=== PATIENT | female | born 1950 ===

== ENCOUNTER 2017-09-28 14:20 | Emergency (ER) | payer MEDICARE ==
[2017-09-28 14:35] VITALS: TEMP 99.3; O2SAT 99
--- NOTE | 2017-09-28 15:14 | C.PDOC ---
History Of Present Illness 67 year old female presents to the emergency room complaining of a headache, onset a few days ago. Patient fell in May, and hit her head. CT at that time was negative. Today she attempted to see her PMD and was unable to get an appointment, so she came here. Patient is concerned about having developed a brain bleed. There has been no new injury or trauma. Denies any visual changes, dizziness, or vomiting. PMD: Dr. Rochelle Belcher Time Seen by Provider: 09/28/17 14:52 Chief Complaint (Nursing): Headache History Per: Patient History/Exam Limitations: no limitations Onset/Duration Of Symptoms: Days (x3) Current Symptoms Are (Timing): Still Present Severity: Mild Quality: Dull Recent travel outside of the [place]: No Past Medical History Reviewed: Historical Data, Nursing Documentation, Vital Signs Vital Signs: Last Vital Signs Temp 99.3 F 09/28/17 14:32 Pulse 78 09/28/17 15:33 Resp 16 09/28/17 15:33 BP 136/84 09/28/17 15:33 Pulse Ox 99 09/28/17 15:33 - Medical History PMH: HTN, Hypothyroidism Surgical History: No Surg Hx Family History: States: No Known Family Hx - Social History Hx Tobacco Use: No Hx Alcohol Use: No Hx Substance Use: No - Immunization History Hx Tetanus Toxoid Vaccination: No Hx Influenza Vaccination: No Hx Pneumococcal Vaccination: No Review Of Systems Except As Marked, All Systems Reviewed And Found Negative. Constitutional: Negative for: Fever, Chills Eyes: Negative for: Vision Change Gastrointestinal: Negative for: Nausea, Vomiting Neurological: Positive for: Headache. Negative for: Dizziness Physical Exam - Physical Exam Appears: Non-toxic, No Acute Distress Skin: Normal Color, Warm, Dry Head: Atraumatic, Normacephalic Eye(s): bilateral: Normal Inspection, PERRL, EOMI Ear(s): Bilateral: Normal Oral Mucosa: Moist Neck: Normal, Normal ROM, Supple Chest: Symmetrical Cardiovascular: Rhythm Regular Respiratory: Normal Breath Sounds, No Accessory Muscle Use Back: Normal Inspection Extremity: Normal ROM, No Deformity Neurological/Psych: Oriented x3, Normal Speech, Normal Cranial Nerves, Cerebellar Signs (normal), Normal Motor, Normal Sensation, Normal Reflexes Gait: Steady ED Course And Treatment O2 Sat by Pulse Oximetry: 99 (RA) Pulse Ox Interpretation: Normal Progress Note: On re-evaluation. ambulating with steady gait. in no distress Reassessment Condition: Improved Medical Decision Making Medical Decision Making: Initial Impression: Headache Initial Plan: Offered Tylenol and Motrin, and patient declined Patient informed of normal physical exam findings. Stable for discharge home. Patient already sees neurologist, advised to follow up with PMD or neurologist for further evaluation. Advised to return if symptoms acutely worsen. Disposition Counseled Patient/Family Regarding: Diagnosis, Need For Followup - Disposition Referrals: Rochelle Belcher [Staff Provider] - Disposition: HOME/ ROUTINE Disposition Time: 15:18 Condition: STABLE Additional Instructions: Follow up with your PMD and neurologist for further evaluation Instructions: General Headache (ED) Forms: [employer] [facility] [employer] (Taiwanese) - POA Present On Arrival: None - Clinical Impression Clinical Impression: Headache - PA / SHOP TAILOR APPRENTICE / Resident Statement MD/DO has reviewed & agrees with the documentation as recorded. - Scribe Statement The provider has reviewed the documentation as recorded by the Scribe (Rosa Maria Harper) All medical record entries made by the Scribe were at my direction and personally dictated by me. I have reviewed the chart and agree that the record accurately reflects my personal performance of the history, physical exam, medical decision making, and the department course for this patient. I have also personally directed, reviewed, and agree with the discharge instructions and disposition.
--- NOTE | 2017-09-28 15:14 | C.PDOC ---
Time Seen by Provider: 09/28/17 14:52 Chief Complaint (Nursing): Headache Past Medical History Vital Signs: Last Vital Signs Temp 99.3 F 09/28/17 14:32 Pulse 67 09/28/17 14:32 Resp 18 09/28/17 14:32 BP 146/86 09/28/17 14:32 Pulse Ox 99 09/28/17 14:32 - Medical History PMH: HTN, Hypothyroidism - Social History Hx Alcohol Use: No Hx Substance Use: No - Immunization History Hx Tetanus Toxoid Vaccination: No Hx Influenza Vaccination: No Hx Pneumococcal Vaccination: No ED Course And Treatment O2 Sat by Pulse Oximetry: 99 Disposition - Disposition
[2017-09-28 15:34] VITALS: BP 136/84; PULSE 78; RESP 16
== END 2017-09-28 15:33 | disposition home or self-care (01) ==
LOC: C.ER 14:20
DX: R51 Headache (principal); I10 Essential (primary) hypertension

== ENCOUNTER 2018-07-25 17:17 | Emergency (ER) | payer MEDICARE ==
[2018-07-25 17:48] VITALS: BMI 25.7
[2018-07-25 18:02] VITALS: BP 189/83; PULSE 65; RESP 17; TEMP 98; O2SAT 100
--- NOTE | 2018-07-25 18:26 | C.PDOC ---
History Of Present Illness 67 year old female presents to the ED for evaluation of a wound to her left foot which developed after her shoes rubbed the area. Patient applied peroxide and neosporin to the area at home without relief. Patient went to her PMD today, who notified her that the wound is well-healing. Patient was instructed to orthopedic and vascular specialist, and presents to the ED with a script. She denies any new injuries or extremity numbness/weakness. Time Seen by Provider: 07/25/18 18:14 Chief Complaint (Nursing): Abnormal Skin Integrity History Per: Patient History/Exam Limitations: no limitations Onset/Duration Of Symptoms: Days Current Symptoms Are (Timing): Better Location Of Injury: Left: Foot Additional History Per: Patient Past Medical History Reviewed: Historical Data, Nursing Documentation, Vital Signs Vital Signs: Last Vital Signs Temp 98.0 F 07/25/18 17:48 Pulse 65 07/25/18 17:48 Resp 17 07/25/18 17:48 BP 189/83 H 07/25/18 17:48 Pulse Ox 100 07/25/18 17:48 - Medical History PMH: HTN, Hypothyroidism Surgical History: No Surg Hx Family History: States: Unknown Family Hx - Social History Hx Tobacco Use: No Hx Alcohol Use: No Hx Substance Use: No - Immunization History Hx Tetanus Toxoid Vaccination: No Hx Influenza Vaccination: No Hx Pneumococcal Vaccination: No Review Of Systems Skin: Positive for: Other (wound to left foot ) Neurological: Negative for: Weakness, Numbness Physical Exam - Physical Exam Appears: Non-toxic, No Acute Distress Skin: Normal Color, Warm, Dry, Other (4x4cm superficial wound to the dorsal anterior left ankle. minimal erythema noted. no bleeding, discharge, or swelling ) Head: Atraumatic, Normacephalic Chest: Symmetrical Extremity: Normal ROM, Capillary Refill (less than 2 seconds ), Other (bilateral bunions) Neurological/Psych: Oriented x3, Normal Speech, Normal Cognition ED Course And Treatment O2 Sat by Pulse Oximetry: 100 (on RA ) Pulse Ox Interpretation: Normal Medical Decision Making Medical Decision Making: Progress: Explained to patient that her wound is well-healing and requires no further emergent care at this time. Patient is advised to follow up with orthopedic and vascular specialist as instructed. Disposition Counseled Patient/Family Regarding: Diagnosis, Need For Followup - Disposition Referrals: Tim Solo Jr., MD [Staff Provider] - Rochelle Belcher [Staff Provider] - Disposition: HOME/ ROUTINE Disposition Time: 18:21 Condition: STABLE Forms: [facility] (Botswanan) - POA Present On Arrival: None - Clinical Impression Clinical Impression: Visit for wound check - PA / CONSOLE OPERATOR / Resident Statement MD/DO has reviewed & agrees with the documentation as recorded. - Scribe Statement The provider has reviewed the documentation as recorded by the Scribe (Ngoc Butts) All medical record entries made by the Scribe were at my direction and personally dictated by me. I have reviewed the chart and agree that the record accurately reflects my personal performance of the history, physical exam, medical decision making, and the department course for this patient. I have also personally directed, reviewed, and agree with the discharge instructions and disposition.
== END 2018-07-25 18:36 | disposition home or self-care (01) ==
LOC: C.ER 17:17
DX: Z51.89 Encounter for other specified aftercare (principal)

== ENCOUNTER 2018-08-05 11:40 | Inpatient (IN) | payer MEDICARE ==
[2018-08-05 11:40] VITALS: BMI 25.7
[2018-08-05 13:46] LABS: BASO # 0.1 K/uL (0.0-0.2); BASO % 0.7 % (0.0-2.0); EOS # 0.2 K/uL (0.0-0.7); EOS % 2.6 % (0.0-4.0); HEMOGLOBIN 14.9 g/dL (11.0-16.0); LYMPH # 1.4 K/uL (1.0-4.3); LYMPH % 20.1 % (20.0-40.0); MEAN CELL VOLUME 92.7 fL (81.0-99.0); MEAN CORPUSCULAR HEMOGLOBIN 31.6 pg (27.0-31.0); MEAN PLATELET VOLUME 8.6 fL (7.2-11.7); MONO # 0.4 K/uL (0.0-0.8); MONO % 5.9 % (0.0-10.0); NEUT % 70.7 % (50.0-75.0); RBC 4.72 Mil/uL (3.80-5.20); RED CELL DISTRIBUTION WIDTH 13.7 % (11.5-14.5); WHITE BLOOD COUNT 7.1 K/uL (4.8-10.8)
[2018-08-05 13:54] LABS: INR 1.1; PROTHROMBIN TIME 11.5 SECONDS (9.7-12.2)
[2018-08-05 13:57] LABS: ALB/GLOB RATIO 1.2 (1.0-2.1); ALBUMIN 4.7 g/dL (3.5-5.0); BLOOD UREA NITROGEN 18 mg/dL (7-17); GFR NON-AFRICAN AMERICAN > 60
[2018-08-05 13:59] LABS: ALT/SGPT 29 U/L (9-52); AST/SGOT 50 U/L (14-36)
[2018-08-05] MEDS ORDERED: Piperacillin/Tazobact 3.375 GM in Sodium Chloride 100 ML IVPB STA (14:01)
[2018-08-05] MEDS ORDERED: Vancomycin 1 GM 1 GM/250 ML BAG IVPB ONE (14:15)
[2018-08-05] MEDS ORDERED: Piperacillin/Tazobact 3.375 gm 100 ML IVPB ONE (14:15)
--- NOTE | 2018-08-05 16:28 | CP.PCM.CON ---
History of Present Illness - History of Present Illness History of Present Illness: Consult note CC: Medicine consultation for medical management HPI: Patient is a 67 year old HTN and hypothyroidism, who present to the ED as per Dr. Estes for left ankle (cellulitis/abscess)and lower abdominal cellulitis that started approximately 3 weeks ago. Medical consult was placed for medical management of patient's chronic issues. During the encounter, patient denies any symptoms of chest pain, palpitations, shortness of breath, nausea, vomiting, fever, chills, numbness/tingling, decrease sensation, coldness to the left ankle but admits to mild itchiness at the left ankle and lower abdominal pain and left ankle tightness. Patient was seen by her PMD approximately 1-2 weeks ago and was prescribed amoxicillin 875mg PO BID, which she started on 07/28/18. Code Status: Full code Emergency contact: Sheyla Rascon, PMD: Dr. Belcher PMHx: HTN and hypothyroidism PSHx: X2 FHx: Denies Medications: Lisinopril Allergies: NKDA Social Hx: Lives with a roommate. Admits to social tobacco use in her younger days but denies current tobacco use for many years, ETOH and illicit drugs Review of Systems - Constitutional Constitutional: absent: Chills, Fever, Headache - Cardiovascular Cardiovascular: Pedal Edema. absent: Chest Pain, Chest Pain at Rest, Diaphoresis, Dyspnea on Exertion Additional comments: Mild left ankle edema - Respiratory Respiratory: absent: Cough, Dyspnea - Gastrointestinal Gastrointestinal: absent: Abdominal Pain, Belching, Change in Stool Character, Diarrhea, Nausea, Vomiting Additional comments: Lower abdominal cellulite skin changes, scaly skin, no discharge - Integumentary Integumentary: Pruritus, Rash Additional comments: Cellulitic changes to the lower abdomen and left ankle - Neurological Neurological: absent: Numbness, Tingling - Endocrine Endocrine: absent: Fatigue, Palpitations Past Patient History - Infectious Disease Hx of Infectious Diseases: None - Past Social History Smoking Status: social smo - CARDIAC Hx Cardiac Disorders: Yes Hx Hypertension: Yes - ENDOCRINE/METABOLIC Hx Endocrine Disorders: Yes Hx Hypothyroidism: Yes - PSYCHIATRIC Hx Substance Use: No - SURGICAL HISTORY Hx Surgeries: Yes Hx Section: Yes (x2) - ANESTHESIA Hx Anesthesia: Yes Meds Allergies/Adverse Reactions: Allergies Allergy/AdvReac Type Severity Reaction Status Date / Time No Known Allergies Allergy Verified 08/05/18 11:56 Physical Exam - Constitutional Appears: No Acute Distress - Head Exam Head Exam: ATRAUMATIC, NORMAL INSPECTION - Eye Exam Eye Exam: EOMI, Normal appearance - ENT Exam ENT Exam: Mucous Membranes Moist - Respiratory Exam Respiratory Exam: Clear to Auscultation Bilateral, NORMAL BREATHING PATTERN. absent: Prolonged Expiratory Phase, Rhonchi, Wheezes, Respiratory Distress - Cardiovascular Exam Cardiovascular Exam: REGULAR RHYTHM, +S1, +S2, Systolic Murmur Additional comments: Systolic murmur heard at right 2nd intercostal and left 2nd intercostal space - GI/Abdominal Exam GI & Abdominal Exam: Normal Bowel Sounds. absent: Distended, Firm, Guarding, Hernia, Soft, Tenderness Additional comments: Cellulitic changes of the lower abdomen - Extremities Exam Extremities exam: Positive for: pedal edema Additional comments: Cellulitic changes to the left dorsal aspect of the ankle without any drainage, warm to touch and with mild edema DP AND PT pulses intact and palpable Sensation intact - Neurological Exam Neurological exam: Alert, Normal Gait, Oriented x3 - Psychiatric Exam Psychiatric exam: Normal Affect - Skin Skin Exam: Normal Color Results - Vital Signs Recent Vital Signs: Last Vital Signs Temp 97.7 F 08/05/18 11:57 Pulse 67 08/05/18 11:57 Resp 18 08/05/18 11:57 BP 164/81 H 08/05/18 11:57 Pulse Ox 100 08/05/18 11:57 - Labs Result Diagrams: 08/05/18 13:40 08/05/18 13:40 Labs: Laboratory Results - last 24 hr 08/05/18 08/05/18 08/05/18 13:40 13:40 13:40 WBC 7.1 RBC 4.72 Hgb 14.9 Hct 43.8 MCV 92.7 MCH 31.6 H MCHC 34.0 RDW 13.7 Plt Count 243 MPV 8.6 Neut % (Auto) 70.7 Lymph % (Auto) 20.1 [place] % (Auto) 5.9 Eos % (Auto) 2.6 Baso % (Auto) 0.7 Neut # (Auto) 5.0 Lymph # (Auto) 1.4 [place] # (Auto) 0.4 Eos # (Auto) 0.2 Baso # (Auto) 0.1 PT 11.5 INR 1.1 APTT 34 Sodium 139 Potassium 4.3 Chloride 98 Carbon Dioxide 26 Anion Gap 19 BUN 18 H Creatinine 0.8 Est GFR ( Amer) > 60 Est GFR (Non-Af Amer) > 60 Random Glucose 97 Calcium 9.0 Total Bilirubin 0.6 AST 50 H ALT 29 Alkaline Phosphatase 59 Total Protein 8.5 H Albumin 4.7 Globulin 3.8 Albumin/Globulin Ratio 1.2 Blood Type Antibody Screen 08/05/18 14:45 WBC RBC Hgb Hct MCV MCH MCHC RDW Plt Count MPV Neut % (Auto) Lymph % (Auto) [place] % (Auto) Eos % (Auto) Baso % (Auto) Neut # (Auto) Lymph # (Auto) [place] # (Auto) Eos # (Auto) Baso # (Auto) PT INR APTT Sodium Potassium Chloride Carbon Dioxide Anion Gap BUN Creatinine Est GFR ( Amer) Est GFR (Non-Af Amer) Random Glucose Calcium Total Bilirubin AST ALT Alkaline Phosphatase Total Protein Albumin Globulin Albumin/Globulin Ratio Blood Type A NEGATIVE Antibody Screen Negative Assessment & Plan (1) Abdominal wall cellulitis Assessment and Plan: General surgery, Dr. Estes * Management as per primary, Dr. Franklyn DILLON, Dr. Cedillo on board Management as per recommendation Status: Acute (2) Cellulitis of left ankle Assessment and Plan: General surgery, Dr. Estes * Management as per primary, Dr. Franklyn DILLON, Dr. Cedillo on board Management as per recommendation Status: Acute (3) History of hypertension Assessment and Plan: Continue home medications: - Irbesartan 150mg PO daily -Lisinopril-HCTZ (20-25)mg PO daily Monitor with vital signs Q4H Status: Acute (4) History of hypothyroidism Assessment and Plan: Continue home medications: - Levothyroxine 88mcg PO daily Status: Acute (5) Prophylactic measure Assessment and Plan: GI: Not indicated DVT: Chemical anticoagulation currently held due to possible surgical interventions, Right leg SCD No further medical management as per medical team. Medicine team will sign off at this time. Thank you allowing us to participate in your care and thank you for the consultation All plans and management discussed with Dr. Dori Butts Status: Acute
--- NOTE | 2018-08-05 16:53 | C.PDOC ---
History Of Present Illness 67 y/o female presents to ED sent by Dr. Estes for cellulitis in abscess of left foot for 1 month. Patient denies numbness to legs, discharge from area, fever, chills or any other complaints at this time. Chief Complaint (Nursing): Abnormal Skin Integrity History Per: Patient History/Exam Limitations: no limitations Onset/Duration Of Symptoms: Days Current Symptoms Are (Timing): Still Present Past Medical History Reviewed: Historical Data, Nursing Documentation, Vital Signs Vital Signs: Last Vital Signs Temp 97.7 F 08/05/18 16:31 Pulse 58 L 08/05/18 16:31 Resp 16 08/05/18 16:31 BP 183/85 H 08/05/18 16:31 Pulse Ox 100 08/05/18 16:31 - Medical History PMH: HTN, Hypothyroidism Surgical History: No Surg Hx Family History: States: No Known Family Hx - Social History Hx Tobacco Use: No Hx Alcohol Use: No Hx Substance Use: No - Immunization History Hx Tetanus Toxoid Vaccination: No Hx Influenza Vaccination: Yes Hx Pneumococcal Vaccination: No Review Of Systems Constitutional: Negative for: Fever, Chills Gastrointestinal: Negative for: Nausea, Vomiting Musculoskeletal: Positive for: Foot Pain (cellulitis) Physical Exam - Physical Exam Appears: Non-toxic, No Acute Distress Skin: Warm, Dry, No Rash Head: Atraumatic, Normacephalic Eye(s): bilateral: Normal Inspection Oral Mucosa: Moist Neck: Supple Cardiovascular: Rhythm Regular Respiratory: Normal Breath Sounds, No Rales, No Rhonchi, No Wheezing Extremity: Capillary Refill (<2 seconds), No Deformity, Other (Erythema to dorsum of left foot) Pulses: Left Dorsalis Pedis: Normal Neurological/Psych: Oriented x3, Normal Speech, Normal Motor, Normal Sensation ED Course And Treatment - Laboratory Results Result Diagrams: 08/05/18 13:40 08/05/18 13:40 O2 Sat by Pulse Oximetry: 100 (RA) Pulse Ox Interpretation: Normal Progress Note: Spoke to Dr Estes on consult and give patient antibiotics as per him. Disposition - Disposition Disposition: HOSPITALIZED Disposition Time: 14:00 Condition: STABLE - Clinical Impression Clinical Impression: Cellulitis, Abscess - Scribe Statement The provider has reviewed the documentation as recorded by the Dory Tavera All medical record entries made by the Darianberto were at my direction and personally dictated by me. I have reviewed the chart and agree that the record accurately reflects my personal performance of the history, physical exam, medical decision making, and the department course for this patient. I have also personally directed, reviewed, and agree with the discharge instructions and disposition.
[2018-08-05] MEDS ORDERED: Dextrose 5%/0.45% NS 1,000 ML IV SCH (19:00)
[2018-08-06] MEDS: Piperacill/Tazo 3.375gm in Dex 3.375 GM/50 ML BAG IVPB SCH ×3 (00:16→17:05)
[2018-08-06] MEDS: Dextrose 5%/0.45% NS 1,000 ML IV SCH ×2 (06:01→21:19)
[2018-08-06] MEDS: Levothyroxine 88 MCG TAB PO SCH (06:01)
--- NOTE | 2018-08-06 07:44 | CP.PCM.PCO ---
Physician Communication Note - Physician Communication Note Physician Communication Note: Please see above
[2018-08-06] MEDS: Lactobacillus Acidophilus 500 MU Cap PO SCH ×2 (10:11→17:22)
[2018-08-06] MEDS ORDERED: Lidocaine Hydrochloride 0 ML INJ ONE (14:30)
[2018-08-06] MEDS ORDERED: Bupivacaine 0.25% 20 ML INJ IJ ONE (14:30)
[2018-08-06] MEDS ORDERED: Midazolam 2 MG/2 ML VIAL ONE (14:38)
[2018-08-06] MEDS ORDERED: Propofol 10 mg/ml Inj (20 ML) ONE (14:39)
[2018-08-06] MEDS ORDERED: Bacitracin Ointment 30 GM TUBE ONE (15:05)
[2018-08-06] MEDS ORDERED: HYDROmorphone 0.5 mg/0.5 ml ISec IVP PRN (15:23)
[2018-08-06] MEDS: Hydrocortisone 1% Cream (30 GM) TOP SCH (17:17)
--- NOTE | 2018-08-06 19:05 | CP.PCM.CON ---
History of Present Illness - History of Present Illness History of Present Illness: 67 year old HTN and hypothyroidism, who present to the ED as per Dr. Estes for left ankle (cellulitis/abscess)and lower abdominal cellulitis that started approximately 3 weeks ago. . Patient was seen by her PMD approximately 1-2 w eeks ago and was prescribed amoxicillin 875mg PO BID, Failed out pt rx PMHx: HTN and hypothyroidism PSHx: X2 FHx: Denies Medications: Lisinopril Allergies: NKDA Past Patient History - Infectious Disease Hx of Infectious Diseases: None - Past Medical History & Family History Past Medical History?: Yes - Past Social History Smoking Status: smoking lo - CARDIAC Hx Hypertension: Yes - PULMONARY Hx Respiratory Disorders: No - NEUROLOGICAL Hx Neurological Disorder: No - HEENT Hx HEENT Problems: No - RENAL Hx Chronic Kidney Disease: No - ENDOCRINE/METABOLIC Hx Hypothyroidism: Yes - HEMATOLOGICAL/ONCOLOGICAL Hx Blood Disorders: No - INTEGUMENTARY Hx Dermatological Problems: No - MUSCULOSKELETAL/RHEUMATOLOGICAL Hx Falls: No - GASTROINTESTINAL Hx Gastrointestinal Disorders: No - GENITOURINARY/GYNECOLOGICAL Hx Genitourinary Disorders: No - PSYCHIATRIC Hx Substance Use: No - SURGICAL HISTORY Hx Surgeries: Yes Hx Section: Yes (x2) - ANESTHESIA Hx Anesthesia: Yes Meds Allergies/Adverse Reactions: Allergies Allergy/AdvReac Type Severity Reaction Status Date / Time No Known Allergies Allergy Verified 08/05/18 11:56 - Medications Medications: Current Medications Hydrochlorothiazide (Hydrodiuril) 25 mg PO DAILY JUSTIN Dextrose/Sodium Chloride (Dextrose 5%/0.45% Ns 1000 Ml) 1,000 mls @ 80 mls/hr IV .[id number] JUSTIN Vancomycin HCl 1,000 mg/ (Sodium Chloride) 250 mls @ 166.6 mls/hr IVPB Q12H JUSTIN; Protocol Piperacillin Sod/Tazobactam (Sod 3.375 gm/ Sodium Chloride) 100 mls @ 200 mls/hr IVPB Q8H JUSTIN; Protocol Levothyroxine Sodium (Synthroid) 88 mcg PO DAILY@0630 JUSTIN Lisinopril (Zestril) 20 mg PO DAILY JUSTIN Losartan Potassium (Cozaar) 50 mg PO DAILY JUSTIN Results - Vital Signs Recent Vital Signs: Last Vital Signs Temp 98.0 F 08/05/18 18:05 Pulse 60 08/05/18 18:05 Resp 18 08/05/18 18:05 BP 188/93 H 08/05/18 18:05 Pulse Ox 100 08/05/18 18:34 - Labs Result Diagrams: 08/05/18 13:40 08/05/18 13:40 Labs: Laboratory Results - last 24 hr 08/05/18 08/05/18 08/05/18 13:40 13:40 13:40 WBC 7.1 RBC 4.72 Hgb 14.9 Hct 43.8 MCV 92.7 MCH 31.6 H MCHC 34.0 RDW 13.7 Plt Count 243 MPV 8.6 Neut % (Auto) 70.7 Lymph % (Auto) 20.1 [place] % (Auto) 5.9 Eos % (Auto) 2.6 Baso % (Auto) 0.7 Neut # (Auto) 5.0 Lymph # (Auto) 1.4 [place] # (Auto) 0.4 Eos # (Auto) 0.2 Baso # (Auto) 0.1 PT 11.5 INR 1.1 APTT 34 Sodium 139 Potassium 4.3 Chloride 98 Carbon Dioxide 26 Anion Gap 19 BUN 18 H Creatinine 0.8 Est GFR ( Amer) > 60 Est GFR (Non-Af Amer) > 60 Random Glucose 97 Calcium 9.0 Total Bilirubin 0.6 AST 50 H ALT 29 Alkaline Phosphatase 59 Total Protein 8.5 H Albumin 4.7 Globulin 3.8 Albumin/Globulin Ratio 1.2 Blood Type Antibody Screen 08/05/18 14:45 WBC RBC Hgb Hct MCV MCH MCHC RDW Plt Count MPV Neut % (Auto) Lymph % (Auto) [place] % (Auto) Eos % (Auto) Baso % (Auto) Neut # (Auto) Lymph # (Auto) [place] # (Auto) Eos # (Auto) Baso # (Auto) PT INR APTT Sodium Potassium Chloride Carbon Dioxide Anion Gap BUN Creatinine Est GFR ( Amer) Est GFR (Non-Af Amer) Random Glucose Calcium Total Bilirubin AST ALT Alkaline Phosphatase Total Protein Albumin Globulin Albumin/Globulin Ratio Blood Type A NEGATIVE Antibody Screen Negative
--- NOTE | 2018-08-06 19:07 | CP.PCM.CON ---
History of Present Illness - History of Present Illness History of Present Illness: 67 year old HTN and hypothyroidism, who present to the ED as per Dr. Estes for left ankle (cellulitis/abscess)and lower abdominal cellulitis that started approximately 3 weeks ago. . Patient was seen by her PMD approximately 1-2 we eks ago and was prescribed amoxicillin 875mg PO BID, Failed out pt rx PMHx: HTN and hypothyroidism PSHx: X2 FHx: Denies Medications: Lisinopril Allergies: NKDA Review of Systems - Review of Systems All systems: reviewed and no additional remarkable complaints except - Constitutional Constitutional: absent: As Per HPI, Anorexia, Chills, Daytime Sleepiness, Excessive Sweating, Fatigue, Fever, Frequent Falls, Headache, Increased Appetite, Lethargy, Malaise, Night Sweats, Snoring, Sleep Apnea, Weight Gain, Weight Loss, Weakness, Other - EENT Eyes: absent: As Per HPI, Blind Spots, Blurred Vision, Change in Vision, Decreased Night Vision, Diplopia, Discharge, Dry Eye, Exophthalmos, Floaters, Irritation, Itchy Eyes, Loss of Peripheral Vision, Pain, Photophobia, Requires Corrective Lenses, Sees Flashes, Spots in Vision, Tunnel Vision, Other Visual Disturbances, Loss of Vision, Other Ears: absent: As Per HPI, Decreased Hearing, Ear Discharge, Ear Pain, Tinnitus, Abnormal Hearing, Disequilibrium, Dizziness, Other Nose/Mouth/Throat: absent: As Per HPI, Epistaxis, Nasal Congestion, Nasal Discharge, Nasal Obstruction, Nasal Trauma, Nose Pain, Post Nasal Drip, Sinus Pain, Sinus Pressure, Bleeding Gums, Change in Voice, Dental Pain, Dry Mouth, Dysphagia, Halitosis, Hoarsness, Lip Swelling, Mouth Lesions, Mouth Pain, Odynophagia, Sore Throat, Throat Swelling, Tongue Swelling, Facial Pain, Neck Pain, Neck Mass, Other - Breasts Breasts: absent: As Per HPI, Change in Shape, Mass, Pain, Nipple Discharge, Nipple Inversion, Skin Changes, Swelling, Other - Cardiovascular Cardiovascular: absent: As Per HPI, Acrocyanosis, Chest Pain, Chest Pain at Rest, Chest Pain with Activity, Claudication, Diaphoresis, Dyspnea, Dyspnea on Exertion, Edema, Irregular Heart Rhythm, Pain Radiating to Arm/Neck/Jaw, Leg Vargas ma, Leg Ulcers, Lightheadedness, Orthopnea, Palpitations, Paroxysmal Nocturnal Dyspnea, Pedal Edema, Radiating Pain, Rapid Heart Rate, Slow Heart Rate, Syncope, Other - Respiratory Respiratory: absent: As Per HPI, Cough, Dyspnea, Hemoptysis, Dyspnea on Exertion , Wheezing, Snoring, Stridor, Pain on Inspiration, Chest Congestion, Excessive Mucous Production, Change in Mucous Color, Pain with Coughing, Other - Gastrointestinal Gastrointestinal: absent: As Per HPI, Abdominal Pain, Belching, Bloating, Change in Bowel Habits, Change in Stool Character, Coffee Ground Emesis, Constipation, Cramping, Diarrhea, Dyspepsia, Dysphagia, Early Satiety, Excessive Flatus, Fecal Incontinence, Heartburn, Hematemesis, Hematochezia, Loose Stools, Melena, Nausea, Odynophagia, Temesmus, Vomiting, Other - Genitourinary Genitourinary: absent: As Per HPI, Change in Urinary Stream, Difficulty Urin ating, Dysuria, Flank Pain, Hematuria, Pyuria, Nocturia, Urinary Incontinence, Urinary Frequency, Urinary Hesitance, Urinary Urgency, Voiding Freq/Small Amts, Freq UTI, Hx Renal/Bladder Calculi, Hx /Renal Surgery, Bladder Distension, Other - Reproductive: Female Reproductive:Female: absent: As Per HPI, Amenorrhea, Amenorrhea/ Control, Currently Menstual, Cycle <21 Days, Cycle >35 Days, Cycle Variable, Menses 1-7 Days, Menses >/= 8 Days, Menses Variable, Cycle > 4 Weeks Between, No Menses for 6 Months, Heavy Menses, Light Menses, Normal Menses, Spotting Between Cycles, S/P Hysterectomy, Menopausal, Post Menopausal, Premenarche, Abnormal Vaginal Bl eeding, Dysmenorrhea, Dyspareunia, Genital Lesions, Genital Pruritis, Pelvic Pain, Prolapse Symptoms, Sexual Dysfunction, Vaginal Discharge, Vaginal Dryness, Vaginal Odor, Vaginal Pruritis, Other - Menstruation Menstruation: absent: As Per HPI, Amenorrhea, Amenorrhea/ Control, Currently Menstual, Cycle <21 Days, Cycle >35 Days, Cycle Variable, Menses 1-7 Days, Menses >/= 8 Days, Menses Variable, Cycle > 4 Weeks Between, No Menses for 6 Months, Heavy Menses, Light Menses, Normal Menses, Spotting Between Cycles, S/P Hysterectomy, Menopausal, Post Menopausal, Premenarche, Abnormal Vaginal Bleeding, Dysmenorrhea, Other - Musculoskeletal Musculoskeletal: As Per HPI - Integumentary Integumentary: As Per HPI - Neurological Neurological: absent: As Per HPI, Abnormal Gait, Abnormal Hearing, Abnormal Movements, Abnormal Speech, Behavioral Changes, Burning Sensations, Confusion, Convulsions, Disequilibrium, Dizziness, Numbness, Focal Weakness, Frequent Falls, Headaches, Lack of Coordination, Loss of Vision, Memory Loss, Paresthesias, Radicular Pain, Restless Legs, Sensory Deficit, Syncope, Tingling, Tremor, Vertigo, Weakness, Other Visual Disturbances, Other - Psychiatric Psychiatric: absent: As Per HPI, Abnormal Sleep Pattern, Anhedonia, Anxiety, Auditory Hallucinations, Behavioral Changes, Change in Appetite, Change in Libido, Confusion, Depression, Difficulty Concentrating, Hallucinations, Homicidal Ideation, Hopelessness, Irritability, Memory Loss, Mood Swings, Panic Attacks, Paranoia, Suicidal Ideation, Visual Hallucinations, Tactile Hallucinations, Other - Endocrine Endocrine: absent: As Per HPI, Change in Body Appearance, Change in Libido, Cold Intolorance, Deepening of Voice, Excessive Sweating, Fatigue, Flushing, Heat Intolorance, Increase in Ring/Shoe/Hat Size, Palpitations, Polydipsia, Polyphagia, Polyuria, Other - Hematologic/Lymphatic Hematologic: absent: As Per HPI, Easy Bleeding, Easy Bruising, Lymphadenopathy, Other Past Patient History - Infectious Disease Hx of Infectious Diseases: None - Past Medical History & Family History Past Medical History?: Yes - Past Social History Smoking Status: smoking lo - CARDIAC Hx Hypertension: Yes - PULMONARY Hx Respiratory Disorders: No - NEUROLOGICAL Hx Neurological Disorder: No - HEENT Hx HEENT Problems: No - RENAL Hx Chronic Kidney Disease: No - ENDOCRINE/METABOLIC Hx Hypothyroidism: Yes - HEMATOLOGICAL/ONCOLOGICAL Hx Blood Disorders: No - INTEGUMENTARY Hx Dermatological Problems: No - MUSCULOSKELETAL/RHEUMATOLOGICAL Hx Falls: No - GASTROINTESTINAL Hx Gastrointestinal Disorders: No - GENITOURINARY/GYNECOLOGICAL Hx Genitourinary Disorders: No - PSYCHIATRIC Hx Substance Use: No - SURGICAL HISTORY Hx Surgeries: Yes Hx Section: Yes (x2) - ANESTHESIA Hx Anesthesia: Yes Meds Allergies/Adverse Reactions: Allergies Allergy/AdvReac Type Severity Reaction Status Date / Time No Known Allergies Allergy Verified 08/05/18 11:56 - Medications Medications: Current Medications Acetaminophen (Tylenol 325mg Tab) 650 mg PO Q6 PRN PRN Reason: Headache Last Admin: 08/06/18 13:21 Dose: 650 mg Hydralazine HCl (Apresoline) 10 mg IVP Q6H PRN PRN Reason: Heart rate Hydrochlorothiazide (Hydrodiuril) 25 mg PO DAILY [facility] Last Admin: 08/06/18 10:11 Dose: 25 mg Hydrocortisone (Cortizone 1% Cream) 1 gm TOP BID [facility] Last Admin: 08/06/18 17:17 Dose: 1 applic Dextrose/Sodium Chloride (Dextrose 5%/0.45% Ns 1000 Ml) 1,000 mls @ 80 mls/hr IV .[id number] [facility] Last Admin: 08/06/18 06:01 Dose: 80 mls/hr Vancomycin HCl 1,000 mg/ (Sodium Chloride) 250 mls @ 166.6 mls/hr IVPB Q12H [facility]; Protocol Last Admin: 08/06/18 17:07 Dose: 166.6 mls/hr Piperacillin Sod/Tazobactam Sod (Zosyn 3.375 Gm Iv Premix) 3.375 gm in 50 mls @ 200 mls/hr IVPB Q8H [facility]; Protocol Last Admin: 08/06/18 17:05 Dose: 200 mls/hr Lactobacillus Acidophilus (Bacid Acidophilus) 1 cap PO BID [facility] Last Admin: 08/06/18 17:22 Dose: 1 cap Levothyroxine Sodium (Synthroid) 88 mcg PO DAILY@0630 [facility] Last Admin: 08/06/18 06:01 Dose: Not Given Lisinopril (Zestril) 20 mg PO DAILY [facility] Last Admin: 08/06/18 10:11 Dose: 20 mg Losartan Potassium (Cozaar) 50 mg PO Q24H [facility] Physical Exam - Constitutional Appears: Non-toxic, Chronically Ill - Head Exam Head Exam: NORMOCEPHALIC - Eye Exam Eye Exam: absent: Scleral icterus - ENT Exam ENT Exam: Mucous Membranes Dry, Normal External Ear Exam - Neck Exam Neck exam: Negative for: Lymphadenopathy - Respiratory Exam Respiratory Exam: Decreased Breath Sounds, Clear to Auscultation Bilateral - Cardiovascular Exam Cardiovascular Exam: REGULAR RHYTHM, +S1, +S2 - GI/Abdominal Exam GI & Abdominal Exam: Diminished Bowel Sounds, Soft. absent: Tenderness - Rectal Exam Rectal Exam: Deferred - Exam Exam: NORMAL INSPECTION - Extremities Exam Extremities exam: Positive for: pedal edema, tenderness, pedal pulses present. Negative for: calf tenderness Additional comments: left foot ulcer cellulitis - Back Exam Back exam: absent: CVA tenderness (L), CVA tenderness (R) - Neurological Exam Neurological exam: Alert, CN II-XII Intact, Oriented x3, Reflexes Normal - Psychiatric Exam Psychiatric exam: Normal Mood - Skin Skin Exam: Dry Results - Vital Signs Recent Vital Signs: Last Vital Signs Temp 98 F 08/06/18 15:18 Pulse 59 L 08/06/18 15:45 Resp 12 08/06/18 15:45 BP 173/72 H 08/06/18 15:45 Pulse Ox 100 08/06/18 15:45 - Labs Result Diagrams: 08/05/18 13:40 08/05/18 13:40 Assessment & Plan (1) Cellulitis of left ankle Status: Acute (2) History of hypertension Status: Acute (3) History of hypothyroidism Status: Acute - Assessment and Plan (Free Text) Assessment: await MRI, vascular studies and cultures will renew IV antibiotics
[2018-08-07] MEDS: Piperacill/Tazo 3.375gm in Dex 3.375 GM/50 ML BAG IVPB SCH ×3 (00:52→16:45)
[2018-08-07] MEDS: Levothyroxine 88 MCG TAB PO SCH (06:38)
[2018-08-07] MEDS: Dextrose 5%/0.45% NS 1,000 ML IV SCH ×3 (07:38→21:48)
[2018-08-07] MEDS: Lactobacillus Acidophilus 500 MU Cap PO SCH ×2 (09:22→18:00)
[2018-08-07] MEDS: Hydrocortisone 1% Cream (30 GM) TOP SCH (09:37)
[2018-08-07] MEDS ORDERED: Midazolam 2 MG/2 ML VIAL ONE (14:25)
[2018-08-07] MEDS ORDERED: Propofol 10 mg/ml Inj (20 ML) ONE (14:26)
[2018-08-07] MEDS ORDERED: HYDROmorphone 0.5 mg/0.5 ml ISec IVP PRN (14:36)
[2018-08-07] MEDS ORDERED: ePHEDrine 50 mg/ml Inj ONE (14:44)
--- NOTE | 2018-08-07 18:25 | CP.PCM.PN ---
Subjective - Date & Time of Evaluation Date of Evaluation: 08/07/18 Time of Evaluation: 08:00 - Subjective Subjective: seen on rounds foot same IV rx renewed Objective - Vital Signs/Intake and Output Vital Signs (last 24 hours): Temp Pulse Resp BP Pulse Ox 97.3 F L 64 20 175/78 H 98 08/07/18 16:03 08/07/18 16:03 08/07/18 16:03 08/07/18 16:03 08/07/18 16:03 Intake and Output: 08/07/18 08/07/18 06:59 18:59 Intake Total 1240 1830 Output Total 600 Balance 640 1830 - Medications Medications: Current Medications Acetaminophen (Tylenol 325mg Tab) 650 mg PO Q6 PRN PRN Reason: Headache Last Admin: 08/07/18 06:36 Dose: 650 mg Hydralazine HCl (Apresoline) 10 mg PO Q6H PRN PRN Reason: Heart rate Hydrochlorothiazide (Hydrodiuril) 25 mg PO DAILY [facility] Last Admin: 08/07/18 09:26 Dose: Not Given Hydrocortisone (Cortizone 1% Cream) 1 gm TOP BID [facility] Last Admin: 08/07/18 09:37 Dose: 1 applic Hydromorphone HCl (Dilaudid) 0.5 mg IVP Q10M PRN PRN Reason: Pain, moderate (4-7) Dextrose/Sodium Chloride (Dextrose 5%/0.45% Ns 1000 Ml) 1,000 mls @ 80 mls/hr IV .[id number] [facility] Last Admin: 08/07/18 07:38 Dose: Not Given Vancomycin HCl 1,000 mg/ (Sodium Chloride) 250 mls @ 166.6 mls/hr IVPB Q12H [facility]; Protocol Last Admin: 08/07/18 16:43 Dose: 166.6 mls/hr Piperacillin Sod/Tazobactam Sod (Zosyn 3.375 Gm Iv Premix) 3.375 gm in 50 mls @ 200 mls/hr IVPB Q8H [facility]; Protocol Last Admin: 08/07/18 16:45 Dose: 200 mls/hr Lactobacillus Acidophilus (Bacid Acidophilus) 1 cap PO BID [facility] Last Admin: 08/07/18 18:00 Dose: 1 cap Levothyroxine Sodium (Synthroid) 88 mcg PO DAILY@0630 [facility] Last Admin: 08/07/18 06:38 Dose: 88 mcg Lisinopril (Zestril) 20 mg PO DAILY [facility] Last Admin: 08/07/18 09:38 Dose: Not Given Losartan Potassium (Cozaar) 50 mg PO Q24H [facility] Last Admin: 08/06/18 21:17 Dose: 50 mg - Labs Labs: 08/05/18 13:40 08/05/18 13:40 PT 11.5 SECONDS (9.7-12.2) 08/05/18 13:40 INR 1.1 08/05/18 13:40 APTT 34 SECONDS (21-34) 08/05/18 13:40 - Constitutional Appears: Non-toxic, Chronically Ill - Eye Exam Eye Exam: absent: Scleral icterus - ENT Exam ENT Exam: Mucous Membranes Dry - Neck Exam Neck Exam: absent: Lymphadenopathy - Respiratory Exam Respiratory Exam: Decreased Breath Sounds - Cardiovascular Exam Cardiovascular Exam: REGULAR RHYTHM - GI/Abdominal Exam GI & Abdominal Exam: Distended - Rectal Exam Rectal Exam: Deferred - Exam Exam: NORMAL INSPECTION Assessment and Plan (1) Cellulitis of left ankle Status: Acute (2) History of hypertension Status: Acute (3) History of hypothyroidism Status: Acute - Assessment and Plan (Free Text) Assessment: cont iv rx as ordered
[2018-08-07] MEDS: Econazole 1% Cream(15 gm) TOP SCH (21:43)
[2018-08-08] MEDS: Piperacill/Tazo 3.375gm in Dex 3.375 GM/50 ML BAG IVPB SCH ×2 (00:18→08:10)
--- NOTE | 2018-08-08 02:30 | OP ---
PROCEDURE DATE: 08/07/2018 PREOPERATIVE DIAGNOSIS: Status post incision and drainage of right ankle abscess with deep wound infection. POSTOPERATIVE DIAGNOSIS: Status post incision and drainage of right ankle abscess with deep wound infection. PROCEDURE PERFORMED: Re-drainage of abscess, debridement, change of packing under anesthesia, pulse irrigation. SURGEON: Gavin Estes MD ANESTHESIA: General. BLOOD LOSS: 30 mL. POSTOPERATIVE CONDITION: Stable. PROCEDURE: The patient was taken back to the operating room for a staged procedure. The right lower extremity was prepped and draped. The right ankle wound was again aggressively debrided. Bleeding was controlled using a Bovie and larger blood vessels were repaired. Pulse irrigation was performed. Any remaining collections were drained and cultured and a partial tissue flap closure was once again performed at the periphery. Central portion of wound was packed open with saline gauze. The patient tolerated the procedure well, returned to Recovery in stable condition. Gavin Estes MD
--- NOTE | 2018-08-08 06:13 | OP ---
PROCEDURE DATE: 08/06/2018 PREOPERATIVE DIAGNOSIS: Cellulitis and abscess of the right ankle. POSTOPERATIVE DIAGNOSIS: Cellulitis and abscess of the right ankle. PROCEDURES PERFORMED: Debridement and re-drainage of cellulitis, abscess of ankle and excision of inflammatory mass. SURGEON Gavin Estes MD ANESTHESIA: General. BLOOD LOSS: 30 mL. POSTOPERATIVE CONDITION: Stable. INDICATIONS FOR SURGERY: This is a 67-year-old female presented with acute cellulitis and abscess of her right ankle, who is now taken to the operating room for definitive therapy. DESCRIPTION OF PROCEDURE: The patient was taken to the operating room. General anesthesia was administered. The right lower extremity was prepped and draped. An incision was made surrounding the inflammatory mass. Underlying pus was drained, and it was excised. Bleeding was controlled using the Bovie. Larger blood vessel was repaired. The wound was pulse irrigated with saline and Kantrex solution. Partial tissue flap closure was performed. Central portion was packed open with saline gauze and dressed sterilely. The patient tolerated the procedure well and returned to recovery room in stable condition. Gavin Estes MD
[2018-08-08] MEDS ORDERED: Midazolam 2 MG/2 ML VIAL ONE (07:43)
[2018-08-08] MEDS ORDERED: Propofol 10 mg/ml Inj (20 ML) ONE (07:43)
[2018-08-08] MEDS: Dextrose 5%/0.45% NS 1,000 ML IV SCH (08:10)
[2018-08-08] MEDS ORDERED: HYDROmorphone 0.5 mg/0.5 ml ISec IVP PRN (08:43)
[2018-08-08] MEDS ORDERED: Lactated Ringer's 1,000 ML IV SCH (08:45)
[2018-08-08 09:24] VITALS: O2SAT 100
[2018-08-08 10:00] VITALS: BP 145/74; PULSE 66; RESP 10; TEMP 98.2
[2018-08-08] MEDS: Lactobacillus Acidophilus 500 MU Cap PO SCH (10:17)
[2018-08-08] MEDS: Econazole 1% Cream(15 gm) TOP SCH (11:09)
--- NOTE | 2018-08-08 15:11 | OP ---
PROCEDURE DATE: 08/08/2018 PREOPERATIVE DIAGNOSIS: Nonhealing ulcer abscess of the left leg and ankle. POSTOPERATIVE DIAGNOSIS: Nonhealing ulcer abscess of the left leg and ankle. PROCEDURE PERFORMED: Debridement and redrainage of abscess, partial flap closure and placement of Dermagraft, left leg. SURGEON: Gavin Estes MD ANESTHESIA: General. ESTIMATED BLOOD LOSS: 20 mL. POSTOPERATIVE CONDITION: Stable. INDICATIONS FOR SURGERY: Staged procedure, the patient is taken back to the operating room for final debridement and placement of the Dermagraft. She had a barely infected ulcer on the leg ____ four days ago. DESCRIPTION OF PROCEDURE: The patient was taken to the operating room, general anesthesia administered. Left lower extremity was prepped and draped. The left ankle wound was again aggressively debrided. Bleeding was controlled using a Bovie and larger vessels were repaired. Any remaining collections were drained and cultured. A Dermagraft was then placed over the wound and sutured in place with 4-0 Monocryl. The wound was dressed sterilely. The patient tolerated the procedure well, returned to the recovery room in stable condition. Gavin Estes MD
== END 2018-08-08 17:11 | disposition home or self-care (01) | DRG 575 ==
LOC: C.ER 11:40 → C.9E 14:01 → C.3T 17:51
PROVIDERS: ADMIT Surgery; ATTEND Surgery
PROC: 0H9MXZX Drainage of Right Foot Skin, External Approach, Diagnostic (ICD-10-PCS; 2018-08-07)
PROC: 0HDMXZZ Extraction of Right Foot Skin, External Approach (ICD-10-PCS; 2018-08-07)
PROC: 0HRMX74 Replacement of Right Foot Skin with Autologous Tissue Substitute, Partial Thickness, External Approach (ICD-10-PCS; principal; 2018-08-07 14:00)
PROC: 0HRNXK3 Replacement of Left Foot Skin with Nonautologous Tissue Substitute, Full Thickness, External Approach (ICD-10-PCS; 2018-08-08)
PROC: 0H9NXZX Drainage of Left Foot Skin, External Approach, Diagnostic (ICD-10-PCS; 2018-08-08)
DX: L03.115 Cellulitis of right lower limb (principal); L03.116 Cellulitis of left lower limb; L02.415 Cutaneous abscess of right lower limb; E03.9 Hypothyroidism, unspecified; I10 Essential (primary) hypertension

== ENCOUNTER 2018-10-29 09:53 | Inpatient (IN) | payer MEDICARE ==
[2018-10-29 09:53] VITALS: BMI 25.7
--- NOTE | 2018-10-29 10:53 | C.PDOC ---
History Of Present Illness 68 year old female sent to ED by Dr. Estes with diagnosis of cellulitis and abscess of the left lower extremity. Patient is to be admitted to the OR for I&D, as per Dr. Estes. Patient states that she drank coffee this morning. Patient denies fever, chills, numbness, or weakness. Time Seen by Provider: 10/29/18 10:02 Chief Complaint (Nursing): Lower Extremity Problem/Injury History Per: Patient History/Exam Limitations: no limitations Onset/Duration Of Symptoms: Unknown Current Symptoms Are (Timing): Still Present Severity: Mild Recent travel outside of the [place]: No Past Medical History Reviewed: Historical Data, Nursing Documentation, Vital Signs Vital Signs: Last Vital Signs Temp 97.5 F L 10/29/18 10:00 Pulse 81 10/29/18 10:00 Resp 18 10/29/18 10:00 BP 188/81 H 10/29/18 10:00 Pulse Ox 100 10/29/18 10:00 - Medical History PMH: HTN, Hypothyroidism Denies: Chronic Kidney Disease Surgical History: No Surg Hx - [facility] Procedures DRAINAGE OF LEFT FOOT SKIN, EXTERNAL APPROACH, DIAGNOSTIC (08/05/18) DRAINAGE OF RIGHT FOOT SKIN, EXTERNAL APPROACH, DIAGNOSTIC (08/05/18) EXTRACTION OF RIGHT FOOT SKIN, EXTERNAL APPROACH (08/05/18) REPLACE L FOOT SKIN W NONAUT SUB, FULL THICK, [employer] ADMINISTRATOR (08/05/18) REPLACE R FOOT SKIN W AUTOL SUB, PART THICK, 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 Negative for: Rash Neurological: Negative for: Weakness, Numbness, Dizziness Physical Exam - Physical Exam Appears: Non-toxic Skin: Normal Color, Warm, Dry Head: Atraumatic, Normacephalic Neck: Normal ROM, Supple Chest: Symmetrical, No Deformity Cardiovascular: Rhythm Regular, No Murmur Respiratory: No Accessory Muscle Use Extremity: Other (dressing to the left lower extremity) Pulses: Left Radial: Normal, Right Radial: Normal, Left Dorsalis Pedis: Normal, Right Dorsalis Pedis: Normal Neurological/Psych: Oriented x3, Normal Speech, Normal Cognition ED Course And Treatment - Laboratory Results Result Diagrams: 10/29/18 11:05 10/29/18 11:05 ECG: Interpreted By Me ECG Rhythm: Sinus Rhythm ECG Interpretation: Normal Rate From EC O2 Sat by Pulse Oximetry: 100 (in RA) Pulse Ox Interpretation: Normal - Other Rad CXR X-Ray: Interpreted by Me, Viewed By Me Interpretation: IMPRESSION: Right hilar prominence. No focal consolidation. Ectatic aorta. Heart size appears top normal. Medical Decision Making Medical Decision Making: Impression: 68 year old female with diagnosis of cellulitis and abscess to the left lower extremity Plan: EKG and CXR ordered for patient Labs with UA and CBC ordered for patient Patient given IV fluids Patient is to be admitted to the OR for I&D, as per Dr. Estes Disposition Doctor Will See Patient In The: Hospital - Disposition Disposition: HOSPITALIZED Disposition Time: 17:00 Condition: STABLE - POA Present On Arrival: None - Clinical Impression Clinical Impression: Cellulitis of left ankle - PA / ACCOUNTS PAYABLE PROCESSOR / Resident Statement MD/DO has reviewed & agrees with the documentation as recorded. (Monie Caruso) - Scribe Statement The provider has reviewed the documentation as recorded by the Scribe (Monie Caruso) All medical record entries made by the Scribe were at my direction and personally dictated by me. I have reviewed the chart and agree that the record accurately reflects my personal performance of the history, physical exam, medical decision making, and the department course for this patient. I have also personally directed, reviewed, and agree with the discharge instructions and disposition. Decision To Admit - Pt Status Changed To: Hospital Disposition Of: Inpatient - Admit Certification Admit to Inpatient:: After my assessment, the patient will require hospitalization for at least two midnights. This is because of the severity of symptoms shown, intensity of services needed, and/or the medical risk in this patient being treated as an outpatient. - InPatient: Physician Admission Certification: I certify that this patient requires 2 or more midnights of care for the following reason:: cellulitis/abscess left lower leg - . Bed Request Type: Regular Admitting Physician: Gavin Estes Patient Diagnosis: Cellulitis, Abscess
--- NOTE | 2018-10-29 11:05 | RAD ---
HISTORY: SOB COMPARISON: None available TECHNIQUE: Chest PA and lateral FINDINGS: LUNGS: Right hilar prominence. No focal consolidation. Please note that chest x-ray has limited sensitivity for the detection of pulmonary masses. PLEURA: No significant pleural effusion identified. No definite pneumothorax . CARDIOVASCULAR: Heart size appears top normal. Aortic ectasia. Atherosclerotic calcifications of the aorta. OSSEOUS STRUCTURES: Kyphosis. Osseous demineralization. VISUALIZED UPPER ABDOMEN: Unremarkable. OTHER FINDINGS: None. IMPRESSION: Right hilar prominence. No focal consolidation. Ectatic aorta. Heart size appears top normal.
[2018-10-29 11:15] LABS: BASO % 0.7 % (0.0-2.0); EOS # 0.2 K/uL (0.0-0.7); EOS % 2.6 % (0.0-4.0); HEMOGLOBIN 13.6 g/dL (11.0-16.0); LYMPH # 1.3 K/uL (1.0-4.3); LYMPH % 19.7 % (20.0-40.0); MEAN CELL VOLUME 93.6 fL (81.0-99.0); MEAN CORPUSCULAR HEMOGLOBIN 31.3 pg (27.0-31.0); MEAN CORPUSCULAR HGB CONC 33.4 g/dL (33.0-37.0); MEAN PLATELET VOLUME 8.3 fL (7.2-11.7); MONO # 0.4 K/uL (0.0-0.8); MONO % 6.2 % (0.0-10.0); NEUT # 4.6 K/uL (1.8-7.0); NEUT % 70.8 % (50.0-75.0); RBC 4.36 Mil/uL (3.80-5.20); RED CELL DISTRIBUTION WIDTH 14.2 % (11.5-14.5); WHITE BLOOD COUNT 6.5 K/uL (4.8-10.8)
[2018-10-29 11:16] LABS: INR 1.1; PROTHROMBIN TIME 12.1 SECONDS (9.7-12.2)
[2018-10-29 11:26] LABS: ALB/GLOB RATIO 1.4 (1.0-2.1); ALBUMIN 4.4 g/dL (3.5-5.0); ALT/SGPT 22 U/L (9-52); AST/SGOT 32 U/L (14-36); BLOOD UREA NITROGEN 17 mg/dL (7-17); CALCIUM 8.8 mg/dl (8.6-10.4); GFR NON-AFRICAN AMERICAN > 60; SQUAMOUS EPITHIAL 1 /hpf (0-5); URINE BACTERIA RARE (<OCC); URINE BILIRUBIN NEGATIVE (NEGATIVE); URINE BLOOD NEGATIVE (NEGATIVE); URINE CLARITY Clear (Clear); URINE COLOR Yellow (YELLOW); URINE GLUCOSE (UA) NORMAL (Normal); URINE LEUKOCYTE ESTERASE 3+ Leu/uL (Negative); URINE PROTEIN NEGATIVE (NEGATIVE); URINE UROBILINOGEN NORMAL mg/dL (0.2-1.0)
[2018-10-29] MEDS: Sodium Chloride 0.9% 1,000 ML IV SCH (12:40)
[2018-10-29] MEDS ORDERED: Bupivacaine HCl 0.5% PF (10 ml) Inj ONE (15:34)
[2018-10-29] MEDS ORDERED: Lidocaine Hydrochloride 20 ML INJ ONE (15:34)
[2018-10-29] MEDS ORDERED: ceFAZolin 1 gm in NS 1 GM/100 ML BAG IVPB ONE (15:35)
[2018-10-29] MEDS ORDERED: Oxycodone/Acetaminophen 5/325 mg Tab PO PRN (16:11)
[2018-10-29] MEDS: Enoxaparin 30 mg Syringe SC SCH (23:29)
[2018-10-30] MEDS: Sodium Chloride 0.9% 1,000 ML IV SCH ×3 (06:09→16:11)
--- NOTE | 2018-10-30 06:16 | OP ---
PROCEDURE DATE: 10/29/2018 PREOPERATIVE DIAGNOSIS: Infected mass at the left ankle. POSTOPERATIVE DIAGNOSIS: Infected mass at the left ankle with abscess. PROCEDURE PERFORMED: Wide deep excision of Infected mass of the left ankle, drainage of underlying abscess, debridement and partial tissue flap closure. SURGEON: Gavin Estes MD ANESTHESIA: General. BLOOD LOSS: 20 mL. POSTOPERATIVE CONDITION: Stable. INDICATIONS FOR SURGERY: This 68-year-old female presents with an infected mass in the anterior portion of her ankle. She now will undergo wide, deep excision. DESCRIPTION OF PROCEDURE: The patient was taken to the operating room, general anesthesia was administered. The left ankle was prepped and draped. A generous elliptical incision was made surrounding the mass. It was dissected free and removed. Bleeding was controlled using the Bovie and a larger blood vessel was repaired. The wound was irrigated with copious amounts of saline solution. Tissue flaps were raised and a partial tissue flap closure was performed. The central portion was cultured and packed open with saline gauze. The patient tolerated the procedure well and returned to the recovery room in stable condition. Gavin Estes MD
[2018-10-30 07:22] LABS: BASO % 0.6 % (0.0-2.0); EOS # 0.4 K/uL (0.0-0.7); EOS % 5.7 % (0.0-4.0); HEMOGLOBIN 13.1 g/dL (11.0-16.0); LYMPH % 30.9 % (20.0-40.0); MEAN CELL VOLUME 93.6 fL (81.0-99.0); MEAN CORPUSCULAR HEMOGLOBIN 31.6 pg (27.0-31.0); MEAN CORPUSCULAR HGB CONC 33.8 g/dL (33.0-37.0); MEAN PLATELET VOLUME 8.1 fL (7.2-11.7); MONO # 0.4 K/uL (0.0-0.8); NEUT # 3.5 K/uL (1.8-7.0); NEUT % 55.8 % (50.0-75.0); NRBC % 0.1 % (0.0-2.0); RBC 4.13 Mil/uL (3.80-5.20); RED CELL DISTRIBUTION WIDTH 14.3 % (11.5-14.5); WHITE BLOOD COUNT 6.3 K/uL (4.8-10.8)
[2018-10-30 07:54] LABS: BLOOD UREA NITROGEN 16 mg/dL (7-17); CALCIUM 8.8 mg/dl (8.6-10.4); GFR NON-AFRICAN AMERICAN > 60
[2018-10-30] MEDS: Enoxaparin 30 mg Syringe SC SCH ×2 (09:00→21:04)
[2018-10-30] MEDS ORDERED: Midazolam 2 MG/2 ML VIAL ONE (14:02)
[2018-10-30] MEDS ORDERED: Propofol 10 mg/ml Inj (20 ML) ONE (14:02)
[2018-10-30] MEDS ORDERED: Lidocaine Hydrochloride 10 ML INJ ONE (14:19)
[2018-10-30] MEDS ORDERED: Bupivacaine HCl 0.25% PF (10 ml) Inj ONE (14:19)
[2018-10-30] MEDS ORDERED: HYDROmorphone 0.5 mg/0.5 ml ISec IVP PRN (14:45)
--- NOTE | 2018-10-30 19:52 | CARD ---
APPROVED REPORT Date of service: 10/29/2018 EKG Measurement Heart [id number] <Conclusion> Normal sinus rhythm Normal ECG
[2018-10-31] MEDS: Sodium Chloride 0.9% 1,000 ML IV SCH ×3 (00:13→12:31)
--- NOTE | 2018-10-31 00:52 | OP ---
PROCEDURE DATE: 10/30/2018 PREOPERATIVE DIAGNOSIS: Open wound and abscess of the left ankle. POSTOPERATIVE DIAGNOSIS: Open wound and abscess of the left ankle. PROCEDURE PERFORMED: Re-drainage of deep abscess of the left ankle with debridement of open wound and partial flap closure. SURGEON: Gavin Estes MD ANESTHESIA: Local with IV sedation. ESTIMATED BLOOD LOSS: 20 mL. POSTOPERATIVE CONDITION: Stable. INDICATIONS FOR SURGERY: This is a staged procedure. The patient underwent an open drainage of a deep abscess in the left ankle yesterday with debridement and removal of an infected mass which left a large open wound. Taken back to the OR for dressing change in the operating room, debridement and partial closure. DESCRIPTION OF PROCEDURE: The patient was taken to the operating room. IV sedation was administered. The left ankle was prepped and draped, and local anesthesia was infiltrated in the area of the open wound. The wound was aggressively debrided and pulse irrigated. Bleeding was controlled using the Bovie, and large blood vessels were repaired. Any remaining collections were drained and cultured. Partial tissue flaps were raised at the periphery, and a partial tissue flap closure was performed with Monocryl. Central portion of the wound was packed open with wet saline gauze. The patient tolerated the procedure well and returned to recovery room in stable condition. Gavin Estes MD
[2018-10-31 07:58] VITALS: RESP 20
[2018-10-31] MEDS: Enoxaparin 30 mg Syringe SC SCH ×2 (10:03→21:11)
[2018-10-31] MEDS ORDERED: Midazolam 2 MG/2 ML VIAL ONE (14:22)
[2018-10-31] MEDS ORDERED: Propofol 10 mg/ml Inj (20 ML) ONE (14:23)
[2018-10-31] MEDS ORDERED: HYDROmorphone 0.5 mg/0.5 ml ISec IVP PRN (15:09)
[2018-10-31] MEDS: Lactated Ringer's 1,000 ML IV SCH ×2 (16:08→17:33)
[2018-11-01 00:52] VITALS: O2SAT 100
[2018-11-01] MEDS: Lactated Ringer's 1,000 ML IV SCH ×2 (02:07→10:55)
[2018-11-01 08:22] VITALS: TEMP 97.8
[2018-11-01] MEDS: Sodium Chloride 0.9% 1,000 ML IV SCH (08:30)
[2018-11-01 09:42] VITALS: BP 148/70; PULSE 64
[2018-11-01] MEDS: Enoxaparin 30 mg Syringe SC SCH (09:46)
--- NOTE | 2018-11-03 06:26 | OP ---
PROCEDURE DATE: 10/31/2018 PREOPERATIVE DIAGNOSIS: Open wound and abscess to the left ankle. POSTOPERATIVE DIAGNOSIS: Open wound and abscess to the left ankle. PROCEDURE PERFORMED: Re-excision of open wound debridement closure of the abscess cavity, left ankle. SURGEON: Gavin Estes MD ANESTHESIA: General. BLOOD LOSS: 20 mL. POSTOPERATIVE CONDITION: Stable. DESCRIPTION OF PROCEDURE: The patient was taken back to the operating room for the staged procedure for closure of his wound. After general anesthesia was administered, the left ankle was prepped and draped. An elliptical incision was made surrounding the abscess cavity. It was excised completely. The new fresh wound was irrigated and closed the advancement flap using multiple layers of Monocryl, subcuticular Monocryl and skin clip. The patient tolerated the procedure well and returned to recovery room in stable condition. Gavin Estes MD
== END 2018-11-01 14:20 | disposition home or self-care (01) | DRG 575 ==
LOC: C.ER 09:53 → C.5S 10:55
PROVIDERS: ADMIT Surgery; ATTEND Surgery
PROC: 0JXR0ZB Transfer Left Foot Subcutaneous Tissue and Fascia with Skin and Subcutaneous Tissue, Open Approach (ICD-10-PCS; 2018-10-29)
PROC: 0J9R0ZZ Drainage of Left Foot Subcutaneous Tissue and Fascia, Open Approach (ICD-10-PCS; 2018-10-29)
PROC: 0JBR0ZZ Excision of Left Foot Subcutaneous Tissue and Fascia, Open Approach (ICD-10-PCS; principal; 2018-10-29 14:00)
PROC: 0JBR0ZZ Excision of Left Foot Subcutaneous Tissue and Fascia, Open Approach (ICD-10-PCS; 2018-10-30)
PROC: 0J9R0ZZ Drainage of Left Foot Subcutaneous Tissue and Fascia, Open Approach (ICD-10-PCS; 2018-10-30)
PROC: 0JXR0ZB Transfer Left Foot Subcutaneous Tissue and Fascia with Skin and Subcutaneous Tissue, Open Approach (ICD-10-PCS; 2018-10-30)
PROC: 0JBR0ZZ Excision of Left Foot Subcutaneous Tissue and Fascia, Open Approach (ICD-10-PCS; 2018-10-31)
PROC: 0HQNXZZ Repair Left Foot Skin, External Approach (ICD-10-PCS; 2018-10-31)
DX: L02.416 Cutaneous abscess of left lower limb (principal); L03.116 Cellulitis of left lower limb; I10 Essential (primary) hypertension; E03.9 Hypothyroidism, unspecified

== ENCOUNTER 2019-01-10 12:38 | Emergency (ER) | payer MEDICARE ==
[2019-01-10 12:38] VITALS: BMI 25.7
[2019-01-10 12:48] VITALS: TEMP 98.4
--- NOTE | 2019-01-10 13:11 | C.PDOC ---
History Of Present Illness 68 y/o female, with history of hypertension, presents to ED complaining of drainage from her left foot that started 2 weeks ago. Patient had a surgery on 10/29/18 for infected abscess of the left ankle by Dr. Estes. She denies fever, chills, nausea, vomiting, difficulty ambulating, weakness, or numbness. Patient has no other complaints. Time Seen by Provider: 01/10/19 12:51 Chief Complaint (Nursing): Lower Extremity Problem/Injury History Per: Patient History/Exam Limitations: no limitations Onset/Duration Of Symptoms: Days Current Symptoms Are (Timing): Still Present Past Medical History Reviewed: Historical Data, Nursing Documentation, Vital Signs Vital Signs: Last Vital Signs Temp 98.4 F 01/10/19 12:43 Pulse 65 01/10/19 12:43 Resp 17 01/10/19 12:43 BP 164/85 H 01/10/19 12:43 Pulse Ox 97 01/10/19 12:43 Primary Care Provider: Rochelle Belcher - Medical History PMH: Asthma, HTN, Hypothyroidism Denies: Chronic Kidney Disease - [facility] Procedures DRAINAGE OF L FOOT SUBCU/FASCIA, OPEN APPROACH (10/29/18) DRAINAGE OF LEFT FOOT SKIN, EXTERNAL APPROACH, DIAGNOSTIC (08/05/18) DRAINAGE OF RIGHT FOOT SKIN, EXTERNAL APPROACH, DIAGNOSTIC (08/05/18) EXCISION OF L FOOT SUBCU/FASCIA, OPEN APPROACH (10/29/18) EXTRACTION OF RIGHT FOOT SKIN, EXTERNAL APPROACH (08/05/18) REPAIR LEFT FOOT SKIN, EXTERNAL APPROACH (10/29/18) REPLACE L FOOT SKIN W NONAUT SUB, FULL THICK, HEAVY MACHINERY OPERATOR (08/05/18) REPLACE R FOOT SKIN W AUTOL SUB, PART THICK, HEAVY MACHINERY OPERATOR (08/05/18) TRANSFER L FOOT SUBCU/FASCIA WITH SKIN, SUBCU, OPEN APPROACH (10/29/18) Family History: States: No Known Family Hx - Social History Hx Tobacco Use: No Hx Alcohol Use: No Hx Substance Use: No - Immunization History Hx Tetanus Toxoid Vaccination: Yes Hx Influenza Vaccination: Yes Hx Pneumococcal Vaccination: Yes Review Of Systems Except As Marked, All Systems Reviewed And Found Negative. Constitutional: Negative for: Fever, Chills Musculoskeletal: Positive for: Other (left foot drainage) Skin: Negative for: Rash Neurological: Negative for: Weakness, Numbness Physical Exam - Physical Exam Appears: Well, Non-toxic, No Acute Distress Skin: Warm, Dry Head: Normacephalic Eye(s): bilateral: Normal Inspection Oral Mucosa: Moist Extremity: No Tenderness, Swelling (mild, on dorsum of mid foot), Other (2x4 cm blister, draining clear yellowish fluid with minimal surrounding erythema, no increased warmth or streaking, no foul smell) Extremity: Bilateral: Normal ROM Pulses: Left Dorsalis Pedis: Normal Neurological/Psych: Oriented x3, Normal Speech, Normal Motor, Normal Sensation Gait: Steady ED Course And Treatment - Laboratory Results Result Diagrams: 01/10/19 13:39 01/10/19 13:39 O2 Sat by Pulse Oximetry: 97 (RA) Pulse Ox Interpretation: Normal - Other Rad Left Foot XR X-Ray: Read By Radiologist Interpretation: FINDINGS: BONES: Degenerative changes. Marked hallux valgus deformity. 5 mm calcaneal sclerotic focus, possibly bone island. No acute displaced fracture. JOINTS: No dislocation. SOFT TISSUES: Soft tissue swelling. No evidence of radiopaque foreign body. OTHER FINDINGS: None. IMPRESSION: Soft tissue swelling. Degenerative changes. Marked hallux valgus deformity. 5 mm calcaneal sclerotic focus, possibly bone island. No acute displaced fracture, dislocation, or significant joint effusion identified.If symptoms persist, or if there is continued clinical concern, x-ray follow-up in 7-10 days should be considered. Medical Decision Making Medical Decision Making: Plan: --Labs --Left Foot XR --Blood Culture 15:10 Case dw/Dr. Estes who states patient okay for discharge patient to follow up in his office this coming Saturday (01/13/19). He suggested topical antibiotic and sterile dressing be applied to the left foot. Bacitracin and sterile dressing applied by nursing staff. Patient agreeable w/POC. Disposition Discussed With : Gavin Estes Doctor Will See Patient In The: Office Counseled Patient/Family Regarding: Studies Performed, Diagnosis, Need For Followup - Disposition Disposition: HOME/ ROUTINE Disposition Time: 15:33 Condition: STABLE Additional Instructions: MARÍA CARSON, thank you for letting us take care of you today. Your provider was Audra Gloria MD and you were treated for LEFT FOOT PAIN. The emergency medical care you received today was directed at your acute symptoms. It may take several days for your symptoms to resolve. Return to the Emergency Department if your symptoms worsen, do not improve, or if you have any other problems. Dr. Estes wants to see you in his office on January 13. Bring any paperwork you were given at discharge with you along with any medications you are taking to your follow up visit. Our treatment cannot replace ongoing medical care by a primary care provider outside of the emergency department. Thank you for allowing the [facility] team to be part of your care today. Instructions: Wound Care (DC) Forms: [facility] (Dominican), General Discharge Instructions - Clinical Impression Clinical Impression: Wound drainage - Scribe Statement The provider has reviewed the documentation as recorded by the Dory Mock Provider Attestation: All medical record entries made by the Darianibfranco were at my direction and personally dictated by me. I have reviewed the chart and agree that the record accurately reflects my personal performance of the history, physical exam, medical decision making, and the department course for this patient. I have also personally directed, reviewed, and agree with the discharge instructions and disposition.
[2019-01-10 13:52] LABS: BASO # 0.1 K/uL (0.0-0.2); BASO % 0.9 % (0.0-2.0); EOS # 0.3 K/uL (0.0-0.7); HEMOGLOBIN 13.8 g/dL (11.0-16.0); LYMPH # 1.6 K/uL (1.0-4.3); LYMPH % 24.4 % (20.0-40.0); MEAN CORPUSCULAR HEMOGLOBIN 31.5 pg (27.0-31.0); MEAN CORPUSCULAR HGB CONC 34.4 g/dL (33.0-37.0); MEAN PLATELET VOLUME 8.1 fL (7.2-11.7); MONO # 0.4 K/uL (0.0-0.8); MONO % 6.3 % (0.0-10.0); NEUT # 4.2 K/uL (1.8-7.0); NEUT % 64.4 % (50.0-75.0); NRBC % 0.1 % (0.0-2.0); RBC 4.38 Mil/uL (3.80-5.20); RED CELL DISTRIBUTION WIDTH 13.2 % (11.5-14.5); WHITE BLOOD COUNT 6.5 K/uL (4.8-10.8)
[2019-01-10 13:55] LABS: MEAN CELL VOLUME 91.6 fL (81.0-99.0)
[2019-01-10 14:04] LABS: BLOOD UREA NITROGEN 18 mg/dL (7-17); CALCIUM 9.4 mg/dl (8.6-10.4); GFR NON-AFRICAN AMERICAN > 60
--- NOTE | 2019-01-10 15:14 | RAD ---
PROCEDURE: Left Foot Radiographs. Three views. HISTORY: wound COMPARISON: None available. FINDINGS: BONES: Degenerative changes. Marked hallux valgus deformity. 5 mm calcaneal sclerotic focus, possibly bone island. No acute displaced fracture. JOINTS: No dislocation. SOFT TISSUES: Soft tissue swelling. No evidence of radiopaque foreign body. OTHER FINDINGS: None. IMPRESSION: Soft tissue swelling. Degenerative changes. Marked hallux valgus deformity. 5 mm calcaneal sclerotic focus, possibly bone island. No acute displaced fracture, dislocation, or significant joint effusion identified.If symptoms persist, or if there is continued clinical concern, x-ray follow-up in 7-10 days should be considered.
[2019-01-10 15:51] VITALS: BP 163/77; PULSE 69; RESP 20
[2019-01-12 17:30] VITALS: O2SAT 97
== END 2019-01-10 15:53 | disposition home or self-care (01) ==
LOC: C.ER 12:38
DX: T81.89XA Other complications of procedures, not elsewhere classified, initial encounter (principal); Y83.9 Surgical procedure, unspecified as the cause of abnormal reaction of the patient, or of later complication, without mention of misadventure at the time of the procedure

== ENCOUNTER 2019-01-14 08:44 | Inpatient (IN) | payer MEDICARE | END 2019-01-17 13:45 | disposition home or self-care (01) | LOC: C.ER 08:44 → C.SDS 09:02 → C.9E 09:02 → C.3T 10:01 → C.9E 10:13 → C.3T 11:55 ==